=== PATIENT | male | born 2000 | race Caucasian/White ===

== ENCOUNTER 2022-03-18 16:47 | Emergency (ER) | payer MEDICAID ==
[~2022-03-18] VITALS: Ht 180.3 cm; Wt 63.6 kg
[2022-03-18] MEDS ORDERED: LORazepam 1 MG tablet PO ONE (17:20)
[2022-03-18 17:28] LABS: BASOPHILS # (AUTO) 0.1 X10'3 (0-0.2); BASOPHILS % (AUTO) 0.5 % (0-1); EOSINOPHILS % (AUTO) 0.3 % (0-6); HEMATOCRIT 44.9 % (42.0-52.0); HEMOGLOBIN 15.7 g/dl (14.0-17.9); LYMPHOCYTES # (AUTO) 1.7 X10'3 (1.1-4.8); MEAN CORPUSCULAR HEMOGLOBIN 29.6 PG (27.0-31.0); MEAN CORPUSCULAR HGB CONC 34.9 g/dL (33.0-36.5); MEAN CORPUSCULAR VOLUME 84.8 FL (78-98); MEAN PLATELET VOLUME 6.3 FL (7.4-10.4); MONOCYTES # (AUTO) 1.1 X10'3 (0-0.9); MONOCYTES % (AUTO) 6.9 % (2-12); NEUTROPHILS # (AUTO) 12.6 X10'3 (1.8-7.7); NEUTROPHILS % (AUTO) 81.3 % (42-75); PLATELET COUNT 426 X10'3 (140-440); RED BLOOD COUNT 5.29 X10'6 (4.70-6.10); RED CELL DISTRIBUTION WIDTH 13.8 % (11.5-14.5); WHITE BLOOD COUNT 15.5 X10'3 (4.5-11.0)
[2022-03-18 17:39] LABS: ALANINE AMINOTRANSFERASE 28 U/L (12-78); ALBUMIN 4.4 G/DL (3.4-5.0); ALBUMIN/GLOBULIN RATIO 1.5 (1.1-1.5); ALKALINE PHOSPHATASE 74 IU/L (46-116); ANION GAP 12 (8-16); ASPARTATE AMINO TRANSFERASE 16 U/L (10-37); BILIRUBIN,TOTAL 0.4 MG/DL (0.1-1.0); BLOOD UREA NITROGEN 14 MG/DL (7-18); BUN/CREATININE RATIO 15.1 (5.4-32.0); CALCIUM 9.1 MG/DL (8.5-10.1); CHLORIDE 106 MMOL/L (99-107); CREATININE 0.93 MG/DL (0.60-1.10); GLUCOSE 111 MG/DL (70-104); POTASSIUM 3.8 MMOL/L (3.5-5.1); SODIUM 139 MMOL/L (135-145); TOTAL CARBON DIOXIDE 21.5 MMOL/L (24-32); TOTAL PROTEIN 7.4 G/DL (6.4-8.2); eGFR > 90 ML/MIN
[2022-03-18 17:49] LABS: ETHANOL < 0.010 GM/DL (0.0-0.010)
[2022-03-18 18:03] LABS: CLARITY,URINE CLEAR (Clear); COLOR,URINE YELLOW (Yellow); GLUCOSE, URINE NEGATIVE (Neg); KETONES,URINE TRACE mg/dl (Neg); LEUKOCYTE ESTERASE ,URINE NEGATIVE (Neg); NITRITES, URINE NEGATIVE (Neg); OCCULT BLOOD,URINE TRACE-INTACT (Neg); PROTEIN,URINE NEGATIVE (Neg); UROBILINOGEN,URINE 0.2 E.U/dL (0.2-1.0)
[2022-03-18 18:04] LABS: UA COLLECTION TYPE VOIDED
[2022-03-18 18:12] LABS: MUCUS STRANDS FEW /LPF (Neg); SQUAMOUS EPITHELIAL CELL,UR NONE SEEN /LPF (FEW)
[2022-03-18 18:13] LABS: BACTERIA,URINE FEW /HPF (Neg); RBC,URINE 0-2 /HPF (0-2); WBC,URINE 0-4 /HPF (0-4)
[2022-03-18 18:14] LABS: CAL OXALATE CRYSTALS FEW /HPF (NEGATIVE); URINE AMPHETAMINE SCREEN NEGATIVE (Neg); URINE BARBITUATE SCREEN NEGATIVE (Neg); URINE BENZODIAZEPINES SCREEN NEGATIVE (Neg); URINE CANNABINOID SCREEN POSITIVE (Neg); URINE COCAINE SCREEN NEGATIVE (Neg); URINE METHADONE SCREEN NEGATIVE (Neg); URINE OPIATE SCREEN NEGATIVE (Neg); URINE PHENCYCLIDINE SCREEN NEGATIVE (Neg)
--- NOTE | 2022-03-18 20:27 | NUR ---
PACKET SENT TO [facility]
[2022-03-18] MEDS ORDERED: QUET25TA PO (20:41)
[2022-03-18] MEDS ORDERED: HYDR50CA PO (20:42)
[2022-03-18] MEDS ORDERED: LORA-269 PO (20:43)
[2022-03-18] MEDS ORDERED: ESCI20TA PO (20:43)
--- NOTE | 2022-03-18 21:00 | NUR ---
Mom of pt came to unit and went over the pt med rec, and pt medicated
--- NOTE | 2022-03-19 06:09 | NUR ---
Pt resting comfy, mom at bedside, no acute distress.
--- NOTE | 2022-03-19 07:15 | NUR ---
MED REQ SENT TO PHARMACY
--- NOTE | 2022-03-19 08:03 | NUR ---
PT MOTHER REQUESTING TO GIVE PT HOME MEDS. I ASSURED HER THAT PHARMACY IS WORKING ON HIS MEDICATIONS AND SHOULD BE APPROVED SOON. PT WAS GIVEN CRACKERS PER REQUEST. PHARMACY WAS CALLED TO EXPEDITE.
--- NOTE | 2022-03-19 08:05 | NUR ---
PHARMACY CALLED FOR MD NAME CLARIFICATION. PT MADE AWARE MEDS WILL BE AVAILABLE SOON.
[2022-03-19] MEDS ORDERED: LORazepam 1 MG tablet PO SCH (08:11)
[2022-03-19] MEDS ORDERED: ESCITALOPRAM OXALATE 5 MG TABLET PO SCH (08:14)
[2022-03-19] MEDS ORDERED: hydrOXYzine 25 MG tablet PO SCH (08:15)
[2022-03-19 10:03] VITALS: BP 132/87
[2022-03-19] MEDS ORDERED: QUEtiapine 25mg tablet PO SCH (21:00)
== END 2022-03-19 10:11 | disposition home or self-care (01) ==
LOC: ER 16:49
DX: S60.416A Abrasion of right little finger, initial encounter (principal); Z20.822 Contact with and (suspected) exposure to COVID-19; F32.A Depression, unspecified; R45.851 Suicidal ideations; Z72.89 Other problems related to lifestyle; Z88.0 Allergy status to penicillin; Z79.899 Other long term (current) drug therapy; X83.8XXA Intentional self-harm by other specified means, initial encounter; Y93.89 Activity, other specified; Y92.89 Other specified places as the place of occurrence of the external cause; Y99.8 Other external cause status
CPT/HCPCS: 36415; 73130; 80053; 80305; 80320; 81001; 84443; 85025; 87635; 99285; C9803; Q0177

== ENCOUNTER 2022-09-13 14:25 | Emergency (ER) | payer MEDICAID ==
[~2022-09-13 14:25] MED LIST: ESCI20TA PO; HYDR50CA PO; LORA-269 PO; QUET25TA PO
== END 2022-09-13 16:38 | disposition left against medical advice (07) ==
LOC: ER 14:25
DX: R11.2 Nausea with vomiting, unspecified (principal); Z53.21 Procedure and treatment not carried out due to patient leaving prior to being seen by health care provider